=== PATIENT | female | born 1940 | race Caucasian/White ===

== ENCOUNTER 2022-09-24 12:36 | Day surgery (SDC) | payer MEDICARE, BC ==
[2022-09-21 10:52] LABS: BASOPHILS # (AUTO) 0.1 X10'3 (0-0.2); BASOPHILS % (AUTO) 0.9 % (0-1); EOSINOPHILS # (AUTO) 0.2 X10'3 (0-0.9); HEMATOCRIT 49.1 % (35.0-45.0); HEMOGLOBIN 15.9 g/dl (12.0-16.0); LYMPHOCYTES # (AUTO) 1.2 X10'3 (1.1-4.8); LYMPHOCYTES % (AUTO) 15.5 % (21-51); MEAN CORPUSCULAR HEMOGLOBIN 31.1 PG (27.0-31.0); MEAN CORPUSCULAR HGB CONC 32.4 g/dL (33.0-36.5); MEAN PLATELET VOLUME 8.8 FL (7.4-10.4); MONOCYTES % (AUTO) 12.6 % (2-12); NEUTROPHILS # (AUTO) 5.2 X10'3 (1.8-7.7); PLATELET COUNT 186 X10'3 (140-440); RED BLOOD COUNT 5.11 X10'6 (4.20-5.60); RED CELL DISTRIBUTION WIDTH 16.7 % (11.5-14.5); WHITE BLOOD COUNT 7.7 X10'3 (4.5-11.0)
[2022-09-21 11:04] LABS: APTT 27 SECONDS (22-32)
[2022-09-21 11:12] LABS: ALBUMIN 3.5 G/DL (3.4-5.0); ANION GAP 9 (8-16); BLOOD UREA NITROGEN 41 MG/DL (7-18); BUN/CREATININE RATIO 28.1 (10.0-20.0); CALCIUM 9.1 MG/DL (8.5-10.1); CHLORIDE 108 MMOL/L (99-107); CHOL/HDL RATIO 2.9 (0.00-4.99); CHOLESTEROL 146 MG/DL (0-200); CREATININE 1.46 MG/DL (0.40-0.90); GLUCOSE 85 MG/DL (70-104); HDL CHOLESTEROL 51 MG/DL (35-60); LDL CHOLESTEROL 87 MG/DL (50-100); SODIUM 140 MMOL/L (135-145); TOTAL CARBON DIOXIDE 23.5 MMOL/L (24-32); TRIGLYCERIDES 46 MG/DL (20-135); eGFR 34 ML/MIN
[~2022-09-24] VITALS: Ht 157.5 cm; Wt 54.0 kg
[2022-09-24 12:48] VITALS: BP 182/89
[2022-09-24] MEDS ORDERED: TIMO5DRO32 (13:01)
[2022-09-24] MEDS ORDERED: LEVO100T PO (13:01)
[2022-09-24] MEDS ORDERED: APIX2.5T PO (13:02)
[2022-09-24] MEDS ORDERED: LISI20TA28 PO (13:02)
[2022-09-24] MEDS ORDERED: FLEC100T35 PO (13:02)
[2022-09-24] MEDS ORDERED: FURO20TA4 PO (13:02)
[2022-09-24] MEDS ORDERED: MULT-1085 PO (13:15)
[2022-09-24] MEDS ORDERED: LISI10TA27 PO (13:15)
[2022-09-24] MEDS ORDERED: MAGN400C PO (13:16)
[2022-09-24] MEDS ORDERED: OMEG-5 PO (13:16)
[2022-09-24] MEDS: diphenhydrAMINE 25mg capsule PO PRN (13:39)
[2022-09-24] MEDS: LORazepam 0.5 MG tablet PO PRN (13:40)
[2022-09-24] MEDS: normal saline 1,000 ML IV SCH (13:41)
[2022-09-24] MEDS ORDERED: iohexol 350MG/ML 100ml bottle IV ONE (15:37)
[2022-09-24] MEDS ORDERED: nitroGLYCERIN-Tridil 50MG/D5W 250 ML IV ONE (15:37)
[2022-09-24] MEDS ORDERED: fentaNYL/PF 50MCG/1 ML 2ML syringe ONE (15:37)
[2022-09-24] MEDS ORDERED: midazolam 1 mg/ML 2ml injection ONE (15:37)
[2022-09-24] MEDS ORDERED: verapamil 2.5 mg/ml inj IV ONE (15:37)
[2022-09-24] MEDS ORDERED: heparin 1,000unit/ml 10ml vial 10 ML ONE (15:37)
[2022-09-24] MEDS ORDERED: LIDOcaine 1% (10mg/ml) 2ml vial ONE (15:37)
[2022-09-24] MEDS ORDERED: LIDOcaine 1% 30ml preserv. free vial ONE (17:11)
[2022-09-24 17:54] VITALS: BP 185/87
[2022-09-24 18:09] VITALS: BP 205/88
[2022-09-24 18:24] VITALS: BP 158/85
[2022-09-24] MEDS ORDERED: HYDROcodone/acetaminophen 10/325mg tab PO PRN (18:25)
[2022-09-24] MEDS ORDERED: HYDROcodone/acetaminophen 5mg/325mg tablet PO PRN (18:25)
[2022-09-24 18:39] VITALS: BP 160/90
[2022-09-24 18:54] VITALS: BP 170/90
[2022-09-25 07:17] LABS: ISTAT Hct MIX 46 %PCV (35-45); ISTAT O2 SATURATION MIX VENOUS 54 % (60-80); ISTAT SOURCE BLNK
[2022-09-25 07:18] LABS: ISTAT Hct MIX 46 %PCV (35-45); ISTAT O2 SATURATION MIX VENOUS 94 % (60-80); ISTAT SOURCE BLNK
== END 2022-09-24 19:42 | disposition home or self-care (01) ==
LOC: SSTAY O 12:36
PROVIDERS: ATTEND Student in an Organized Health Care Education/Training Program
DX: I36.1 Nonrheumatic tricuspid (valve) insufficiency (principal); I10 Essential (primary) hypertension; E03.9 Hypothyroidism, unspecified; I48.91 Unspecified atrial fibrillation; Z79.899 Other long term (current) drug therapy
CPT/HCPCS: 36415; 80048; 80061; 82803; 85014; 85025; 85610; 85730; 93005; 93460; 99152; 99153; C1760; C1769; C1894; J1644; J2250; J3010; J3490; J7030; Q0163; Q9967; A6258; A6402; A6449; C1751

== ENCOUNTER 2022-12-18 10:33 | Outpatient (CLI) | payer MEDICARE, BC ==
[~2022-12-18 10:33] MED LIST: APIX2.5T PO; FLEC100T35 PO; FURO20TA4 PO; LEVO100T PO; LISI10TA27 PO; LISI20TA28 PO; MAGN400C PO; MULT-1085 PO; OMEG-5 PO; TIMO5DRO44
== END 2022-12-18 23:59 | disposition home or self-care (01) ==
LOC: RAD 10:33
PROVIDERS: ATTEND Thoracic Surgery (Cardiothoracic Vascular Surgery)
DX: J90 Pleural effusion, not elsewhere classified (principal); I51.7 Cardiomegaly; J98.4 Other disorders of lung
CPT/HCPCS: 71046

== ENCOUNTER 2023-01-01 10:28 | Outpatient (CLI) | payer MEDICARE, BC | END 2023-01-01 23:59 | disposition home or self-care (01) | LOC: RAD 10:28 | PROVIDERS: ATTEND Thoracic Surgery (Cardiothoracic Vascular Surgery) | DX: J98.11 Atelectasis (principal); J91.8 Pleural effusion in other conditions classified elsewhere | CPT/HCPCS: 71046 ==

== ENCOUNTER 2024-05-06 09:27 | Outpatient (CLI) | payer MEDICARE, BC ==
[~2024-05-06 09:27] MED LIST changes: +DILT180C66 PO; -FLEC100T35 PO; -LISI10TA27 PO; -LISI20TA28 PO
[2024-05-06 10:26] LABS: ALBUMIN 3.8 G/DL (3.4-5.0); ANION GAP 12 (8-16); BLOOD UREA NITROGEN 22 MG/DL (7-18); BUN/CREATININE RATIO 13.4 (10.0-20.0); CHLORIDE 109 MMOL/L (99-107); CREATININE 1.64 MG/DL (0.40-0.90); GLUCOSE 81 MG/DL (70-104); POTASSIUM 4.5 MMOL/L (3.5-5.1); SODIUM 145 MMOL/L (135-145); TOTAL CARBON DIOXIDE 24.4 MMOL/L (24-32); eGFR 30 ML/MIN
[2024-05-06] MEDS ORDERED: iohexol 350MG/ML 100ml bottle IV ONE (15:24)
== END 2024-05-06 23:59 | disposition home or self-care (01) ==
LOC: RAD 09:27
PROVIDERS: ATTEND Internal Medicine Interventional Cardiology
DX: I08.2 Rheumatic disorders of both aortic and tricuspid valves (principal); I50.9 Heart failure, unspecified; I25.10 Atherosclerotic heart disease of native coronary artery without angina pectoris; M43.8X4 Other specified deforming dorsopathies, thoracic region; Z98.890 Other specified postprocedural states
CPT/HCPCS: 36415; 75572; 80048; Q9967